=== PATIENT | female | born 1950 | race Caucasian/White ===

== ENCOUNTER 2020-11-23 19:20 | Emergency (ER) | payer MEDICARE, OTHER ==
[~2020-11-23] VITALS: Ht 154.9 cm; Wt 53.5 kg
[2020-11-23 21:00] LABS: CALCIUM 9.2 mg/dL (8.5-10.1); GFR 54.5; POTASSIUM 3.5 mmol/L (3.5-5.1)
[2020-11-23 21:06] LABS: ALBUMIN 4.1 g/dL (3.4-5.0); DIRECT BILIRUBIN 0.1 mg/dL (0.0-0.2); TOTAL BILIRUBIN 0.5 mg/dL (0.2-1.0); TOTAL PROTEIN 7.3 g/dL (6.4-8.2)
[2020-11-23 21:11] LABS: BASO % 0 % (0-3); EOS % 0 % (0-3); HEMATOCRIT 39.5 % (36.0-47.0); LYMPH # 0.7 x10^3/uL (1.0-4.8); LYMPH % 5 % (24-48); MEAN CORPUSCULAR HEMOGLOBIN 29 pg (25-35); MEAN CORPUSCULAR HGB CONC 33 g/dL (31-37); MEAN CORPUSCULAR VOLUME 87 fL (79-100); MONO # 0.9 x10^3/uL (0.0-1.1); MONO % 6 % (0-9); NEUT # 12.6 x10^3uL (1.8-7.7); NEUT % 88 % (31-73); PLATELET COUNT 219 x10^3/uL (140-400); RED BLOOD COUNT 4.54 x10^6/uL (3.50-5.40); RED CELL DISTRIBUTION WIDTH 14.5 % (11.5-14.5); WHITE BLOOD COUNT 14.3 x10^3/uL (4.0-11.0)
[2020-11-23] MEDS ORDERED: ONDA4TAB7 PO (21:37)
[2020-11-23 21:46] LABS: BACTERIA,URINE FEW /HPF (0-FEW); BILIRUBIN,URINE NEG (NEG); CLARITY,URINE HAZY; COLOR,URINE YELLOW; GLUCOSE,URINE NEG (NEG); HYALINE CASTS, URINE FEW /HPF; NITRITE,URINE NEG (NEG); SQUAMOUS EPITHELIAL CELL,UR MOD /LPF; UROBILINOGEN,URINE 0.2 mg/dL (0.2 mg/dL)
[2020-11-23 21:47] LABS: AMORPHOUS SEDIMENT,UR PRESENT /HPF
[2020-11-23 21:48] LABS: AMPHETAMINE/METHAMPHETAMINE NEG (NEG); BARBITURATES NEG (NEG); BENZODIAZEPINES NEG (NEG); CANNABINOIDS NEG (NEG); COCAINE NEG (NEG); METHADONE NEG (NEG); OPIATES NEG (NEG); PHENCYCLIDINE NEG (NEG)
[2020-11-23 22:04] VITALS: BP 124/70
[2020-11-24] MEDS ORDERED: OXYC1TAB15 PO (15:08)
[2020-11-24] MEDS ORDERED: CIPR500T94 PO (15:08)
== END 2020-11-23 22:04 | disposition home or self-care (01) ==
LOC: ER 19:20
DX: E86.0 Dehydration (principal); D72.829 Elevated white blood cell count, unspecified; R10.84 Generalized abdominal pain
CPT/HCPCS: 36415; 74022; 80048; 80076; 80307; 81001; 82150; 82550; 83690; 84484; 85025; 87077; 87086; 87186; 93005; 96361; 96374; 96375; 99285; J2405; J3010; J3490; J7120

== ENCOUNTER 2020-11-24 13:19 | Emergency (ER) | payer MEDICARE, OTHER ==
[~2020-11-24] VITALS: Ht 154.9 cm; Wt 53.5 kg
[2020-11-24 13:19] VITALS: BP 113/43
[~2020-11-24 13:19] MED LIST: ONDA4TAB7 PO
--- NOTE | 2020-11-24 14:01 | PHYS DOC ---
Past History Past Medical History: Arthritis, Arrhythmia, COPD Past Surgical History: Appendectomy, Cholecystectomy, Hysterectomy, Tonsillectomy Alcohol Use: None General Adult EDM: Chief Complaint: ABDOMINAL PAIN HPI: HPI: Patient is a 70-year-old female coming in for generalized abdominal pain worse in the right lower quadrant. Patient states she had an endoscopy done consisting EGD and colonoscopy yesterday. Was seen last night after he started having fevers abdominal pain. Mostly nausea, vomiting, diarrhea. Patient states she has had less urine but denies any dysuria. Patient states she had a temperature of 100.3 and took to 800 mg aspirin at 12:42 PM. Patient was seen last night had labs and x-rays done but was discharged. Patient here requesting CT scan to "get to the bottom of this". Review of Systems: Review of Systems: All other systems within normal limits except for as noted in the HPI Allergies: Allergies: Allergies Coded Allergies Type Severity Reaction Last Updated Verified amitriptyline Allergy Unknown 11/23/20 Yes amlodipine Allergy Unknown 11/23/20 Yes atenolol Allergy Unknown 11/23/20 Yes cephalexin Allergy Unknown 11/23/20 Yes clindamycin Allergy Unknown 11/23/20 Yes diltiazem Allergy Unknown 11/23/20 Yes hydromorphone Allergy Unknown 11/23/20 Yes methylprednisolone Allergy Unknown 11/23/20 Yes tetracycline Allergy Unknown 11/23/20 Yes Physical Exam: PE: Constitutional: Well developed, well nourished, no acute distress, non-toxic appearance. [] HENT: Normocephalic, atraumatic, bilateral external ears normal, nose normal. [] Eyes: PERRLA, conjunctiva normal, no discharge. [] Neck: No rigidity, supple, no stridor. [] Cardiovascular: Regular rate and rhythm, brisk cap refill [] Lungs & Thorax: Non labored symmetric respirations, no tachypnea or respiratory distress [] Abdomen: Soft, nondistended, right lower quadrant tenderness. Skin: Warm, dry, no erythema, no rash. [] Back: Unremarkable Extremities: No deformities, range of motion grossly intact, no lower extremity edema [] Neurologic: Alert and oriented X 3, no focal deficits noted. [] Psychologic: Affect normal, judgement normal, mood normal. [] EKG: EKG: [] Radiology/Procedures: Radiology/Procedures: EXAM: Abdomen and pelvis CT with intravenous contrast. HISTORY: Right lower quadrant pain. TECHNIQUE: Computed tomographic images of the abdomen and pelvis were obtained following the administration of intravenous contrast. Multiplanar reformatting was performed. *One or more of the following individualized dose reduction techniques were utilized for this examination: 1. Automated exposure control. 2. Adjustment of the mA and/or kV according to patient size. 3. Use of iterative reconstruction technique. COMPARISON: None. FINDINGS: Evaluation of the lower thorax is unremarkable. There is geographic fatty infiltration of the liver along the falciform ligament measuring 3.1 cm. There is mild biliary ductal dilatation likely due to reservoir effect status post cholecystectomy. There is also a prominent pancreatic duct. No obstructing lesion at the ankle is seen. The spleen, stomach, and adrenal glands are unremarkable. There is a prominent renal collecting system without haily hydronephrosis. There is a small simple appearing left renal cyst. The appendix is likely absent. T here is wall thickening involving the cecum and proximal ascending colon. There is slight surrounding fatty stranding. There is colonic diverticulosis. There is no convincing diverticulitis. There are foci of gas within the bladder likely due to recent catheterization. There is pelvic floor relaxation. The uterus is absent. The ovaries are absent. There is calcified plaque involving the aorta and iliac bifurcation. There is no lymphadenopathy. There is no suspicious osseous lesion. There is a small fat-containing right inguinal hernia. IMPRESSION: 1. Circumferential wall thickening involving the cecum and ascending colon, favoring acute colitis of infectious or inflammatory etiologies. 2. Colonic diverticulosis. 3. Small fat-containing right inguinal hernia. 4. 3.1 cm hypodense lesion within the liver along the falciform ligament, the location of which favors changes due to fatty infiltration. Liver sonography can be performed to confirm benignity. 5. Biliary ductal dilatation and prominent downstream pancreatic duct likely due to reservoir effect status post cholecystectomy. 6. Tiny left renal cyst.[] Heart Score: C/O Chest Pain: No Risk Factors: Risk Factors: DM, Current or recent (<one month) smoker, HTN, HLP, family history of CAD, obesity. Risk Scores: Score 0 - 3: 2.5% MACE over next 6 weeks - Discharge Home Score 4 - 6: 20.3% MACE over next 6 weeks - Admit for Clinical Observation Score 7 - 10: 72.7% MACE over next 6 weeks - Early Invasive Strategies Course & Med Decision Making: Course & Med Decision Making Pertinent Labs and Imaging studies reviewed. (See chart for details) [] Jose Disclaimer: Jose Disclaimer: This electronic medical record was generated, in whole or in part, using a voice recognition dictation system. Departure Departure: Impression: Primary Impression: Colitis Disposition: HOME / SELF CARE / HOMELESS Referrals: JACQUELINE CHOWDARY MD (PCP) Patient Instructions: Colitis Scripts Ciprofloxacin Hcl (CIPRO) 500 Mg Tablet 1 TAB PO BID for antibiotic for 5 Days, #10 TAB 0 Refills Prov: ERMIAS CHOPRA MD 11/24/20 Oxycodone Hcl/Acetaminophen (PERCOCET 5-325 MG TABLET ) 1 Each Tablet 1 TAB PO PRN Q6HRS PRN for PAIN for 3 Days, #10 TAB Prov: ERMIAS CHOPRA MD 11/24/20 ERMIAS CHOPRA MD Nov 24, 2020 14:01
[2020-11-24] MEDS ORDERED: CONTRAST GIVEN. MC PRN (14:15)
[2020-11-24] MEDS ORDERED: IOHEXOL 300 MG/ML 75 ML VIAL. IV ONE (14:15)
--- NOTE | 2020-11-24 14:34 | RAD ---
EXAM: Abdomen and pelvis CT with intravenous contrast. HISTORY: Right lower quadrant pain. TECHNIQUE: Computed tomographic images of the abdomen and pelvis were obtained following the administ ration of intravenous contrast. Multiplanar reformatting was performed. *One or more of the following individualized dose reduction techniques were utilized for this examina tion: 1. Automated exposure control. 2. Adjustment of the mA and/or kV according to patient size. 3. Use of iterative reconstruction technique. COMPARISON: None. FINDINGS: Evaluation of the lower thorax is unremarkable. There is geographic fatty infiltration of t he liver along the falciform ligament measuring 3.1 cm. There is mild biliary ductal dilatation likel y due to reservoir effect status post cholecystectomy. There is also a prominent pancreatic duct. No obstructing lesion at the ankle is seen. The spleen, stomach, and adrenal glands are unremarkable. There is a prominent renal collecting system without haily hydronephrosis. There is a small simple ap pearing left renal cyst. The appendix is likely absent. There is wall thickening involving the cecum and proximal ascending colon. There is slight surrounding fatty stranding. There is colonic diverticu losis. There is no convincing diverticulitis. There are foci of gas within the bladder likely due to recent catheterization. There is pelvic floor relaxation. The uterus is absent. The ovaries are absent. There is calcified plaque involving the aor ta and iliac bifurcation. There is no lymphadenopathy. There is no suspicious osseous lesion. There i s a small fat-containing right inguinal hernia. IMPRESSION: 1. Circumferential wall thickening involving the cecum and ascending colon, favoring acute colitis of infectious or inflammatory etiologies. 2. Colonic diverticulosis. 3. Small fat-containing right inguinal hernia. 4. 3.1 cm hypodense lesion within the liver along the falciform ligament, the location of which favor s changes due to fatty infiltration. Liver sonography can be performed to confirm benignity. 5. Biliary ductal dilatation and prominent downstream pancreatic duct likely due to reservoir effect status post cholecystectomy. 6. Tiny left renal cyst. Electronically signed by: Reba Nixon MD (11/24/2020 2:31 PM) [id number]
[2020-11-24 14:36] LABS: BASO % 0 % (0-3); EOS % 0 % (0-3); HEMATOCRIT 35.1 % (36.0-47.0); HEMOGLOBIN 11.5 g/dL (12.0-15.5); LYMPH # 1.5 x10^3/uL (1.0-4.8); LYMPH % 13 % (24-48); MEAN CORPUSCULAR HEMOGLOBIN 29 pg (25-35); MEAN CORPUSCULAR HGB CONC 33 g/dL (31-37); MEAN CORPUSCULAR VOLUME 87 fL (79-100); MONO # 0.5 x10^3/uL (0.0-1.1); MONO % 5 % (0-9); NEUT # 9.5 x10^3uL (1.8-7.7); NEUT % 82 % (31-73); PLATELET COUNT 202 x10^3/uL (140-400); RED BLOOD COUNT 4.02 x10^6/uL (3.50-5.40); RED CELL DISTRIBUTION WIDTH 14.8 % (11.5-14.5); WHITE BLOOD COUNT 11.5 x10^3/uL (4.0-11.0)
[2020-11-24 14:38] LABS: CALCIUM 9.1 mg/dL (8.5-10.1); GFR 54.5; POTASSIUM 3.4 mmol/L (3.5-5.1)
[2020-11-24 14:44] LABS: ALBUMIN 3.6 g/dL (3.4-5.0); ALBUMIN/GLOBULIN RATIO 1.1 (1.0-1.7); TOTAL BILIRUBIN 0.5 mg/dL (0.2-1.0)
[2020-11-24] MEDS ORDERED: CIPR500T94 PO (15:08)
[2020-11-24] MEDS ORDERED: OXYC1TAB15 PO (15:08)
[2020-11-24 15:14] LABS: COLOR,URINE YELLOW
[2020-11-24 15:15] LABS: BILIRUBIN,URINE NEG (NEG); CLARITY,URINE HAZY; GLUCOSE,URINE NEG (NEG); NITRITE,URINE NEG (NEG); UROBILINOGEN,URINE 0.2 mg/dL (0.2 mg/dL)
[2020-11-24 15:16] LABS: BACTERIA,URINE FEW /HPF (0-FEW); SQUAMOUS EPITHELIAL CELL,UR FEW /LPF; WBC,URINE TNTC /HPF (0-4)
== END 2020-11-24 15:25 | disposition home or self-care (01) ==
LOC: ER 13:19
DX: K52.9 Noninfective gastroenteritis and colitis, unspecified (principal); M19.90 Unspecified osteoarthritis, unspecified site; J44.9 Chronic obstructive pulmonary disease, unspecified; Z90.89 Acquired absence of other organs; Z90.49 Acquired absence of other specified parts of digestive tract; Z90.710 Acquired absence of both cervix and uterus; Z88.1 Allergy status to other antibiotic agents; Z88.8 Allergy status to other drugs, medicaments and biological substances; Z88.5 Allergy status to narcotic agent
CPT/HCPCS: 36415; 74177; 80053; 81001; 83605; 83690; 85025; 87086; 99285; Q9967

== ENCOUNTER → 2020-12-19 | Outpatient (CLI) | payer MEDICARE, OTHER ==
[2020-11-24 13:19] VITALS: BP 113/43
[~2020-12-19] MED LIST changes: +CIPR500T94 PO; +OXYC1TAB15 PO
--- NOTE | 2020-12-19 10:44 | RAD ---
EXAM: Dunn scale and color Doppler abdomen sonogram. HISTORY: Abdomen pain. Weight loss. Suspected mesenteric ischemia. TECHNIQUE: Dunn scale and color Doppler sonographic imaging of the abdomen was performed. COMPARISON: None. FINDINGS: There is an elevated peak systolic velocity within the proximal superior mesenteric artery, measuring 270 cm/s. There are normal peak systolic velocities within the mid and distal superior mes enteric artery. There is an elevated peak systolic velocity within the celiac axis, measuring 335 cm/ s. The inferior vena cava is patent. The aorta is normal in caliber. The hepatic artery is patent wit h normal directional flow. IMPRESSION: 1. Elevated peak systolic velocities within the proximal superior mesenteric artery and to lack axis, consistent with hemodynamically significant stenosis. 2. Note is made that the abdominal visceral structures are not formally assessed on this exam. Electronically signed by: Reba Nixon MD (12/19/2020 10:42 AM) [id number]
== END ==
LOC: US 09:41
PROVIDERS: ATTEND Internal Medicine Gastroenterology
DX: R10.9 Unspecified abdominal pain (principal); R63.4 Abnormal weight loss
CPT/HCPCS: 76770

== ENCOUNTER → 2021-01-10 | Outpatient (CLI) | payer MEDICARE, OTHER ==
[~2021-01-10] MED LIST changes: +IOHEXOL 350 MG/ML 100 ML VIAL. IV ONE
--- NOTE | 2021-01-10 12:37 | RAD ---
CT angiography of the abdomen and pelvis 01/10/2021 INDICATION: Hypogastric pain. Left upper quadrant pain. Evaluate for arterial stenosis. COMPARISON STUDY: CT of the abdomen and pelvis with contrast November 24, 2020 TECHNIQUE: Multidetector CT imaging of the abdomen and pelvis performed following the administration of contrast. 3-D reconstructions of abdominal and pelvic vasculature were created on an independent w orkstation and reviewed. FINDINGS: Visualized descending thoracic aorta is unremarkable. The abdominal aorta demonstrates no a neurysm or dissection. Mild diffuse atherosclerotic vascular disease is noted. The celiac artery is p atent. The SMA is patent. The KAREY is small but patent. The bilateral renal arteries are patent. The b ilateral common iliac arteries, and external iliac arteries are small but patent. Internal iliac andrew tanisha demonstrate mild proximal stenosis bilaterally but are otherwise patent. 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 The left common femoral artery demons trates mild stenosis secondary to calcified plaque. The gallbladder is surgically absent. The liver is otherwise unremarkable. The adrenal glands, and sp arianne are unremarkable. Minimal nonspecific prominence of the pancreatic duct is seen. Pancreas is oth erwise unremarkable. The kidneys are unremarkable. There is no evidence of bowel obstruction. Mild di ffuse colonic diverticulosis noted. Small amount of gas is present within the bladder. No free fluid or free air seen in the anterior pelvis. The osseous changes are seen. Calculi within a urethral dive rticulum appear to be along the anterior inferior bladder. No acute osseous changes are seen. IMPRESSION: 1. Mild diffuse atherosclerotic vascular disease without hemodynamically significant mesenteric arter y stenosis.. No aneurysm or dissection is seen. 2. Probable calculi within urethral diverticulum along the anterior inferior bladder. Urology consult ation consider urology consultation as clinically indicated CT DOSING PQRS STATEMENT: One or more of the following individualized dose reduction techniques were utilized for this examinat ion: 1. Automated exposure control 2. Adjustment of the mA and/or kV according to patient size 3. Use of iterative reconstruction technique Electronically signed by: Jesus Brooks MD (01/10/2021 12:35 PM) [id number]
== END ==
LOC: CT 10:21
PROVIDERS: ATTEND Family Medicine
DX: K55.1 Chronic vascular disorders of intestine (principal)
CPT/HCPCS: 74174; Q9967